=== PATIENT | male | born 1970 | race African-American/Black ===

== ENCOUNTER 2020-09-26 09:48 | Emergency (ER) | payer OTHER, SELFPAY ==
--- NOTE | ~2020-09-26 | XR_ITS ---
[XR ribs LT 2V w CXR 2V ] INDICATION: Left rib pain TECHNIQUE: Frontal projection of the upper left ribs, frontal projection of the lower left ribs, obli que projection of all the left ribs, frontal inspiratory chest x-ray for interpretation. FINDINGS: There are no displaced rib fractures identified. There are no soft tissue abnormality see n. The lungs are clear. There is atelectasis left mid and lower lung. IMPRESSION: 1:No displaced rib fractures. Reviewed, dictated and finalized at location A. [employer] WORK[employer]
[2020-09-26 09:51] VITALS: BP 150/102; PULSE 97; RESP 20; TEMP 36.7; O2SAT 99
[2020-09-26 11:05] LABS: Basophils Percent Auto 0.4 % (0.2-1.2); Eosinophils Absolute Auto 0.1 K/mm3 (0-0.3); Eosinophils Percent Auto 1.2 % (0-4.4); Hematocrit 44.7 % (42.0-52.0); Immature Granulocyte Absolute 0.04 K/mm3 (0.00-0.031); Immature Granulocyte Percent A 0.5 % (0-0.5); Lymphocytes Absolute Auto 1.66 K/mm3 (0.9-3.2); Lymphocytes Percent Auto 20.4 % (18.3-44.2); Mean Corpuscular HGB Conc 33.6 g/dl (32-36); Mean Corpuscular Hemoglobin 31.9 pg (26-34); Mean Corpuscular Volume 95.1 fl (80-100); Mean Platelet Volume 10.8 fl (7.4-10.4); Monocytes Absolute Auto 0.6 K/mm3 (0.1-0.6); Monocytes Percent Auto 7.6 % (2.6-8.5); Neutrophils Absolute Auto 5.7 K/mm3 (1.3-6.7); Neutrophils Percent Auto 69.9 % (45.5-73.1); Platelet Count Result 177 k/mm3 (150-375); Red Cell Distribution Width 12.5 % (11.5-14.5); White Blood Count 8.1 K/mm3 (4.5-10.0)
--- NOTE | 2020-09-26 11:07 | ECG_ITS ---
Measurements Intervals [place] Rate: 82 P: 44 [place]: 194 QRS: 7 QRSD: 102 T: 39 QT: 382 QTc: 447 Interpretive Statements SINUS RHYTHM NONSPECIFIC ST ELEVATION IN ANTEROLAT/HIGH LAT LEADS BORDERLINE ECG Electronically Signed On 09-26-2020 16:30:44 RADIOLOGY RECEPTIONIST by Bakari Mott D.O.
[2020-09-26 11:14] LABS: Anion Gap 4 mmol/L (8-16); Blood Urea Nitrogen 14 mg/dL (9-20); Calcium 8.9 mg/dL (8.4-10.2); Carbon Dioxide 32 mmol/L (22-30); Chloride 103 mmol/L (98-107); Estimated CRCL calculation 138 ml/min; Estimated Glomerular Filt Rate > 60; Glucose 114 mg/dL (75-110); Potassium 3.9 mmol/L (3.4-5.0); Sodium 139 mmol/L (137-145)
--- NOTE | 2020-09-26 11:22 | ED.GENADULT ---
HPI - General Adult General Chief complaint: Back Pain/Injury <Dyllan Iqbal PA-C - Last Filed: 09/26/20 13:13> Stated complaint: flank pain <Dyllan Iqbal PA-C - Last Filed: 09/26/20 13:13> Time Seen by Provider: 09/26/20 10:22 <Dyllan Iqbal PA-C - Last Filed: 09/26/20 13:13> Source: patient <Dyllan Iqbal PA-C - Last Filed: 09/26/20 13:13> Mode of arrival: ambulatory <Dyllan Iqbal PA-C - Last Filed: 09/26/20 13:13> Limitations: no limitations <Dyllan Iqbal PA-C - Last Filed: 09/26/20 13:13> History of Present Illness HPI narrative: Patient is a 50-year-old male who presents to emergency department for evaluation of left lateral rib pain had the same pain a week ago after lifting some objects the pain lasted a few days subsided and then this morning had a recurrence of the discomfort followed by severe pain and cramping after closing a door patient has not taken anything for his symptoms denies URI symptoms shortness of breath patient did have some nausea with the pain which has subsided patient presents in no distress does not appear uncomfortable denies similar occurrence in the past. <Dyllan Iqbal PA-C - Last Filed: 09/26/20 13:13> Related Data Allergies/adverse reactions: Allergies Allergy/AdvReac Type Severity Reaction Status Date / Time No Known Allergies Allergy Verified 09/26/20 10:13 <Dyllan Iqbal PA-C - Last Filed: 09/26/20 13:13> Review of Systems Review of Systems: All systems reviewed & are unremarkable except as noted in HPI and below <Dyllan Iqbal PA-C - Last Filed: 09/26/20 13:13> [facility] Past Medical History Medical History: Medical History (Updated 09/26/20 @ 13:12 by Dyllan Iqbal PA-C) Hypertension <Dyllan Iqbal PA-C - Last Filed: 09/26/20 13:13> Exam Narrative: Exam Narrative: GENERAL: Well-appearing, obese, and in no acute distress. HEAD: Normocephalic, atraumatic. EYES: PERRLA and EOMI. ENT: Nares clear, no rhinorrhea or epistaxis. Mucous membranes moist. CHEST: Clear to auscultation. No respiratory distress. No wheezes rales or rhonchi. Point tenderness of the left lateral ribs no rash or deformity noted HEART: Regular rate and rhythm. No murmur heard. Normal peripheral pulses. ABDOMEN: Soft, nontender, nondistended EXTREMITIES: Normal range of motion. No edema. SKIN: Warm, dry, no rash. NEURO: No focal deficits. Alert and oriented x3. PSYCH: Normal mood and affect. <KALINA Wills Last Filed: 09/26/20 13:13> Course Course Emergency Course: Patient in the room no distress aware of case findings treatment plan diagnosis agreeing to follow-up as directed provided with reasons to return evaluated in the emergency department and felt appropriate for discharge home patient does have reproducible pain which could be musculoskeletal in nature. Patient had improvement with medications hemodynamically stable ABCs intact <KALINA Wills Last Filed: 09/26/20 13:13> Vital Signs Vital signs: Vital Signs Temperature 98.0 F 09/26/20 09:51 Pulse Rate 97 09/26/20 09:51 Respiratory Rate 20 09/26/20 09:51 Blood Pressure 150/102 H 09/26/20 09:51 Pulse Oximetry 99 09/26/20 09:51 Temperature 98.0 F 09/26/20 09:51 Pulse Rate 81 09/26/20 13:21 Respiratory Rate 28 H 09/26/20 13:21 Blood Pressure 175/107 H 09/26/20 13:21 Pulse Oximetry 97 09/26/20 13:21 <KALINA Wills Last Filed: 09/26/20 13:13> Vital Signs Temperature 98.0 F 09/26/20 09:51 Pulse Rate 97 09/26/20 09:51 Respiratory Rate 20 09/26/20 09:51 Blood Pressure 150/102 H 09/26/20 09:51 Pulse Oximetry 99 09/26/20 09:51 Temperature 98.0 F 09/26/20 09:51 Pulse Rate 81 09/26/20 13:21 Respiratory Rate 28 H 09/26/20 13:21 Blood Pressure 175/107 H 09/26/20 13:21 Pulse Oximetry 97 09/26/20 13:21 <Susy Patricio MD - Last
[2020-09-26 11:32] LABS: Add Urine Microscopic? YES; Appearance Urine Clear (Clear); Bilirubin Urine Negative (Negative); Blood Urine 1+ (Negative); Color Urine Yellow (Yellow); Glucose Urine UA Negative (Negative); Ketones Urine Negative (Negative); Leukocyte Esterase Ur Negative LEU/UL (Negative); Mucus Urine Rare /lpf; Nitrate Urine Negative (Negative); Protein Urine 1+ mg/dL (Negative); Specific Grav Ur 1.029 (1.001-1.035); Squamous Epithelial Cell Urine Occasional /hpf (Few); WBC Urine 0-3 /hpf
[2020-09-26 11:40] LABS: INR 0.9
[2020-09-26 11:41] LABS: Partial Thromboplastin Time 33.1 SECONDS (22.3-36.8)
[2020-09-26 11:43] LABS: D Dimer 0.36 ug/mL (<0.48)
[2020-09-26 11:47] LABS: Troponin I 0.029 ng/mL (0.000-0.034)
[2020-09-26 11:58] VITALS: BP 165/109; PULSE 82; RESP 22; O2SAT 99
[2020-09-26 12:59] VITALS: BP 158/110; PULSE 77; RESP 18; O2SAT 99
[2020-09-26 13:21] VITALS: BP 175/107; PULSE 81; RESP 28; O2SAT 97
== END 2020-09-26 13:22 | disposition home or self-care (01) ==
PROVIDERS: Emergency Medicine Emergency Medical Services; Emergency Provider General Practice; PCP Internal Medicine
DX: R07.81 Pleurodynia (principal); I10 Essential (primary) hypertension; R94.31 Abnormal electrocardiogram [ECG] [EKG]
CPT/HCPCS: 36415; 71046; 71100; 80048; 81001; 84484; 85025; 85380; 85610; 85730; 93005; 99284

== ENCOUNTER 2022-05-26 11:07 | Outpatient (CLI) | payer BC, SELFPAY ==
[2022-05-26 19:01] LABS: Basophils Percent Auto 0.6 % (0.2-1.2); Eosinophils Absolute Auto 0.1 K/mm3 (0-0.3); Eosinophils Percent Auto 1.3 % (0-4.4); Hemoglobin 15.4 g/dL (14.0-18.0); Immature Granulocyte Absolute 0.03 K/mm3 (0.00-0.031); Immature Granulocyte Percent A 0.4 % (0-0.5); Lymphocytes Absolute Auto 1.99 K/mm3 (0.9-3.2); Lymphocytes Percent Auto 29.6 % (18.3-44.2); Mean Corpuscular HGB Conc 31.4 g/dl (32-36); Mean Corpuscular Hemoglobin 30.1 pg (26-34); Mean Corpuscular Volume 95.9 fl (80-100); Mean Platelet Volume 11.6 fl (7.4-10.4); Monocytes Absolute Auto 0.4 K/mm3 (0.1-0.6); Monocytes Percent Auto 6.5 % (2.6-8.5); Neutrophils Absolute Auto 4.1 K/mm3 (1.3-6.7); Neutrophils Percent Auto 61.6 % (45.5-73.1); Platelet Count Result 170 k/mm3 (150-375); Red Blood Count 5.11 M/mm3 (4.6-6.20); Red Cell Distribution Width 12.9 % (11.5-14.5); White Blood Count 6.7 K/mm3 (4.5-10.0)
[2022-05-26 20:07] LABS: Free T4 Free Thyroxine 1.03 ng/mL (0.78-2.19)
[2022-05-26 20:15] LABS: Alanine Aminotransferase 20 U/L (6-50); Albumin Level 4.3 g/dL (3.5-5.1); Alkaline Phosphatase 69 U/L (38-126); Anion Gap 8 mmol/L (8-16); Aspartate Amino Transferase 29 U/L (17-59); Bilirubin,Total 0.5 mg/dL (0.2-1.3); Blood Urea Nitrogen 12 mg/dL (9-20); Calcium 8.4 mg/dL (8.4-10.2); Carbon Dioxide 32 mmol/L (22-30); Chloride 100 mmol/L (98-107); Cholesterol 182 mg/dL (0-200); Estimated Glomerular Filt Rate > 60; Glucose 104 mg/dL (65-110); HDL Direct 45 mg/dL; Potassium 4.2 mmol/L (3.4-5.0); Sodium 140 mmol/L (137-145); Triglycerides 56 mg/dL (<150)
[2022-05-26 20:26] LABS: LDL Cholesterol Direct 102 mg/dL
[2022-05-30 17:13] LABS: Testosterone Total 357 ng/dL (250-1100)
[2022-05-30 22:43] LABS: PSA, Free 0.09 ng/mL; PSA, Total 0.4 ng/mL (<=4.0)
== END 2022-05-26 11:08 | disposition home or self-care (01) ==
LOC: ANHGOSHLAB 11:11
PROVIDERS: PCP Internal Medicine; Visit Provider Internal Medicine
DX: N40.0 Benign prostatic hyperplasia without lower urinary tract symptoms (principal); E29.1 Testicular hypofunction; I10 Essential (primary) hypertension
CPT/HCPCS: 36415; 80053; 80061; 84153; 84154; 84402; 84403; 84439; 84443; 85025

== ENCOUNTER 2023-08-14 08:25 | Outpatient (CLI) | payer BC, SELFPAY ==
--- NOTE | 2023-09-01 14:11 | WPDSLEEPSTUD ---
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 He has a long history of obstructive sleep apnea, he snores loudly and other people tell him that he quits breathing at night. He is constantly tired and can fall asleep in the middle of a conversation. There is a family history of sleep issues, his mother uses CPAP for sleep apnea. He always awakens from sleep feeling short of breath. He constantly wakes at night with heartburn, belching or coughing.??He constantly snores, always snores loudly enough that others complain. He always has trouble sleeping when he has a cold. He always wakes up gasping for breath during the night. He always has breathing problems at night. He occasionally sweats excessively at night. He constantly notices his heart pounding or beating irregularly during the night. He constantly falls asleep during the day. He constantly falls asleep involuntarily, rarely falls asleep while driving. He rarely experiences loss of muscle tone with strong emotion. He constantly has daytime difficulty at work due to excessive sleepiness. He rarely feels paralyzed on waking or falling asleep. He rarely experiences vivid dreams upon waking or falling asleep. He never feels afraid of going to sleep. He rarely has nightmares. He occasionally recalls his dreams. He constantly has thoughts racing through his mind. He rarely feels sad or depressed. He frequently feels anxiety. He occasional notices parts of his body jerk. He does not know if he kicks at night. He occasionally feels crawling or aching feelings in his legs. He rarely feels leg pain at night. He never has morning jaw pain, rarely grinds his teeth at night. He occasionally feels bothered by pain during the day, rarely awakened by pain during the night. He frequently wakes up feeling stiff in the morning, and he rarely wakes feeling sore or achy. He occasionally awakens with pain in his neck, spine, or joints. his sleep survey indicates that he has fatigue, sexual problems and memory problems. Normal bedtime is 9:30 p.m., falling asleep within seconds. He wakes 4-5 times during the night to go to the bathroom and sometimes he will watch television. He usually is able to return to sleep within 10-15 minutes. He typically gets 5-6 hours of sleep per night. His wake up time is between 5:00 a.m. and 6:00 a.m.. on weekends, bedtime is later, 11:00 p.m., also awakens between 5 and 6:00 a.m.. He takes naps in the day, however never feels refreshed afterwards. Habits:??Tobacco: Former smoker Caffeine: 1 or 2 per day. 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
[2023-09-01 14:30] VITALS: BMI 39.3
== END 2023-08-14 22:20 | disposition left against medical advice (07) ==
LOC: ANHCSM 08:27
PROVIDERS: PCP Internal Medicine; Visit Provider Internal Medicine Critical Care Medicine
DX: G47.33 Obstructive sleep apnea (adult) (pediatric) (principal)
CPT/HCPCS: 95810

== ENCOUNTER 2023-09-26 15:22 | Outpatient (CLI) | payer BC, SELFPAY ==
--- NOTE | 2023-09-26 15:39 | ECHO_ITS ---
Patient Info Name: Gabriel Maldonado Age: 53 years : 1970 Gender: Male Ht: 71 in Wt: 285 lbs BSA: 2.60 m2 HR: 84 bpm BP: 145 / 99 mmHg Heart Rhythm: Sinus Rhythm Technical Quality: Good Exam Date: 09/26/2023 3:43 PM Exam Location: Echo Lab Patient Status: Outpatient Admit Date: 09/26/2023 Staff Ordering Physician: Amarilis Farmer MD Pediatric Oncologist: Uche Sal RDCS Attending Provider: Amarilis Farmer MD Referring Physician: Darian KWAN; Exam Type: CA echo doppler color flow Study Info Indications - HTN Complete two-dimensional, color flow and Doppler transthoracic echocardiogram is performed. Summary 1. Complete two-dimensional, color flow and Doppler transthoracic echocardiogram is performed. 2. Left ventricular chamber dimension is normal. 3. Left ventricular systolic function is normal, estimated at 60-65%. 4. There is moderate concentric increased left ventricular wall thickness. 5. The left ventricular diastolic function is grade I diastolic dysfunction. 6. E/e' 9 is minimally elevated. 7. No pulmonary hypertension, estimated pulmonary arterial systolic pressure is 20 mmHg. 8. There is trace pulmonic regurgitation. Left Ventricle E/e' 9 is minimally elevated. Left ventricular chamber dimension is normal. Left ventricular systolic function is normal, estimated at 60-65%. There is moderate concentric increased left ventricular wall thickness. The left ventricular diastolic function is grade I diastolic dysfunction. Right Ventricle Right ventricular systolic function is normal and with normal TAPSE 2.6 cm. Right ventricular chamber dimension is normal. Left Atria Left atrial chamber dimension is normal. Right Atria Right atrial chamber dimension is normal. Aortic Valve The aortic valve is trileaflet. There is no aortic valve stenosis. There is no aortic valve regurgitation. Pulmonic Valve There is trace pulmonic regurgitation. Mitral Valve There is no mitral valve stenosis. There is no mitral valve regurgitation. Tricuspid Valve There is no tricuspid valve regurgitation. No pulmonary hypertension, estimated pulmonary arterial systolic pressure is 20 mmHg. Pericardium/Pleural There is no pericardial effusion. Inferior Vena Cava Normal inferior vena cava with >50% collapse upon inspiration consistent with normal right atrial pressure, 5 mmHg. Aorta The aortic root size at the sinus of Valsalva is normal. Left Ventricular Outflow Tract Name Value Normal LVOT 2D LVOT Diameter 2.1 cm LVOT Doppler LVOT Peak Gradient 3 mmHg LVOT Mean Gradient 2 mmHg LVOT VTI 16 cm LVOT VTI/AV VTI Ratio 0.6 LVOT Stroke Volume 59 ml LVOT CO 3.8 l/min LVOT CI 1.5 l/min/m2 Pulmonic Valve Name Value Normal RVOT Doppler
== END 2023-09-26 15:23 | disposition home or self-care (01) ==
PROVIDERS: PCP Internal Medicine; Visit Provider Internal Medicine Critical Care Medicine
DX: I10 Essential (primary) hypertension (principal)
CPT/HCPCS: 93306